=== PATIENT | male | born 1990 | race Caucasian/White ===

== ENCOUNTER 2024-11-18 12:17 | Emergency (ER) | payer BC, OTHER ==
[2024-11-18] MEDS ORDERED: Boostrix 0.5 ML (Tdap) VIAL (>/=7 yrs of age) ONE (12:32)
[2024-11-18] MEDS ORDERED: Bacitracin 1 PK ONE (12:46)
== END 2024-11-18 12:50 | disposition home or self-care (01) ==
LOC: MADERS 12:17
DX: S01.01XA Laceration without foreign body of scalp, initial encounter (principal); E66.9 Obesity, unspecified; Z23 Encounter for immunization; W22.8XXA Striking against or struck by other objects, initial encounter
CPT/HCPCS: 90471; 90715